=== PATIENT | female | born 1995 | race Caucasian/White ===

== ENCOUNTER 2016-11-27 23:09 | Emergency (ER) | payer OTHER, MEDICAID ==
[~2016-11-27 23:09] MED LIST: CITA20TA PO; LEVO750T39 PO
[2016-11-27 23:12] VITALS: BP 141/93; PULSE 70; RESP 14; O2SAT 98
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
[2016-11-27] MEDS ORDERED: Ketorolac 30 mg/mL 2 mL Inj IM ONE (23:25)
[2016-11-28 00:33] VITALS: BP 119/81; PULSE 64; RESP 20; O2SAT 98
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
== END 2016-11-28 00:33 | disposition home or self-care (01) ==
LOC: SED 23:09
DX: S16.1XXA Strain of muscle, fascia and tendon at neck level, initial encounter (principal); S29.019A Strain of muscle and tendon of unspecified wall of thorax, initial encounter; V43.52XA Car driver injured in collision with other type car in traffic accident, initial encounter; Y93.89 Activity, other specified; Y99.8 Other external cause status; Y92.410 Unspecified street and highway as the place of occurrence of the external cause; F17.200 Nicotine dependence, unspecified, uncomplicated
CPT/HCPCS: 72040; 72072; 96372; 99284; J1885